=== PATIENT | female | born 1965 | race Hispanic/Latino ===

== ENCOUNTER 2021-08-17 16:32 | Emergency (ER) | payer SELFPAY ==
--- NOTE | ~2021-08-17 | CT_ITS ---
EXAMINATION: CTA brain carotid DATE: 08/17/2021 20:37 INDICATION: Dizziness. TECHNIQUE: Computed tomographic angiography (CTA) of the head was performed without and with 100 mL O mnipaque-350 intravenous contrast. CTA of the neck was performed with intravenous contrast. Automated exposure control and iterative reconstruction technique were employed. The dose-length product was 1 634.07 mGy-cm. Maximum intensity projection and volume rendered 3D-reconstructions were created by paulette palacios technologist on a separate workstation. COMPARISON: None. FINDINGS: HEAD CTA: There is no intracranial hemorrhage, acute infarction, or abnormal intracranial mass lesion . The ventricles are normal in size. There is mild mucosal thickening in the paranasal sinuses. The o rbits are normal. The mastoid air cells are normal. The vertebral arteries are codominant. There is n o significant stenosis of basilar artery or the posterior cerebral arteries. The left posterior commu nicating artery is normal. A right posterior communicating artery is not identified. There is no sign ificant stenosis of the intracranial internal carotid arteries or anterior or middle cerebral arterie s. Anterior communicating artery is normal. There is no aneurysm. NECK CTA: Pectus excavatum is noted. There are no pathologically enlarged lymph nodes. There is no si gnificant stenosis of the vertebral arteries. There is mild plaque in the proximal internal carotid a rteries. There is 0% stenosis of the proximal right internal carotid artery relative to normal distal artery lumen diameter (NASCET criteria). There is 0% stenosis of the proximal left internal carotid artery relative to normal distal artery lumen diameter. There is severe cervical spondylosis. IMPRESSION: 1. Normal brain. No aneurysm or significant intracranial internal stenosis. 2. 0% stenosis of the proximal internal carotid arteries relative to normal distal artery lumen diame ters (NASCET criteria). Reviewed, dictated and finalized at location E. EL INSPECTOR IMPRESSION: 1. Normal brain. No aneurysm or significant intracranial internal stenosis. 2. 0% stenosis of the proximal internal carotid arteries relative to normal dis lonnie artery lumen diameters (NASCET criteria).
[2021-08-17 16:35] VITALS: BP 139/83; PULSE 71; RESP 17; TEMP 36.5; O2SAT 100
--- NOTE | 2021-08-17 18:54 | ECG_ITS ---
Measurements Intervals [place] Rate: 31 P: 63 [place]: 156 QRS: -53 QRSD: 90 T: -28 QT: 376 QTc: 270 Interpretive Statements SINUS BRADYCARDIA ATRIAL PREMATURE COMPLEXES POSSIBLE LEFT ATRIAL ENLARGEMENT INCOMPLETE RIGHT BUNDLE BRANCH BLOCK BORDERLINE ST-T WAVE ABNORMALITY- ANTERIOR LEADS BASELINE ARTIFACT- I, II, III, AVR, AVL, AVF, V1-V6 BORDERLINE ECG Electronically Signed On 08-17-2021 20:38:49 [employer] by Louie Stovall D.O.
[2021-08-17] MEDS: MECLIZINE HCL 25 MG TABLET PO (19:08)
--- NOTE | 2021-08-17 19:39 | ED.GENADULT ---
HPI - General Adult General Chief complaint: Dizziness Stated complaint: dizzy, CP Time Seen by Provider: 08/17/21 18:10 Source: patient, family and RN notes reviewed History of Present Illness HPI narrative: Patient is a 56 y/o female complaining of moderate dizziness starting today. She describes her dizziness as room spinning sensation. She states that looking down made her dizziness worse. She has been having diarrhea and vomiting for 1 week. She has no abdominal pain or headache. Of note, patient is non[place] speaking and son provided translation. Related Data Allergies Allergy/AdvReac Type Severity Reaction Status Date / Time No Known Allergies Allergy Verified 08/17/21 16:37 Review of Systems Constitutional: Constitutional: Denies chills, Denies fever(s), Denies headache(s) and Denies weakness Eyes: Eyes: Denies blurry vision ENT: Denies headache(s) and Denies neck pain Cardiovascular: Cardiovascular: Denies chest pain and Denies dyspnea Respiratory: Respiratory: Denies cough and Denies dyspnea Gastrointestinal: Gastrointestinal: Denies abdominal pain, Reports diarrhea, Reports nausea and Reports vomiting Genitourinary: Genitourinary: Denies hematuria and Denies dysuria Musculoskeletal: Musculoskeletal: Denies back pain and Denies neck pain Neurologic: Reports dizziness, Denies headache(s) and Denies weakness Exam Const: General: no acute distress and well developed Orientation/consciousness: oriented to person, oriented to place, oriented to time and patient oriented x3 HENMT: Head: normocephalic Ears: external ears normal General nose exam: Normal external nose present Eyes: General: appearance normal, both eyes and all related structures Conjunctivae: conjunctivae normal Neck: Neck: normal visual inspection and full ROM Chest: Chest palpation & inspection: normal inspection of the chest and no tenderness Resp: Effort & Inspection: normal respiratory effort Auscultation: clear to auscultation bilaterally Cardio: Rate: regular rate Rhythm: regular rhythm GI: GI Palp: No abdominal tenderness and Yes Soft to palpation Skin: General skin exam: normal color and turgor normal Neuro: General: oriented to person, oriented to place, oriented to time and patient oriented x3 Cranial nerves: Yes CN's II-XII intact bilaterally Cognition (Neuro): normal cognition Speech: normal speech Motor exam (neuro): 5/5 motor strength present throughout Sensory Exam: normal sensation Coordination: [id number] test normal and [id number] test normal Extrem: General: normal to inspection, full ROM and no pedal edema Psych: Appearance: grossly normal Mental Status: mental status grossly normal Affect: normal affect Course Vital Signs Vital signs: Vital Signs Temperature 36.5 C 08/17/21 16:35 Pulse Rate 71 08/17/21 16:35 Respiratory Rate 17 08/17/21 16:35 Blood Pressure 139/83 08/17/21 16:35 Pulse Oximetry 100 08/17/21 16:35 Temperature 36.5 C 08/17/21 16:35 Pulse Rate 87 08/17/21 23:53 Respiratory Rate 16 08/17/21 23:53 Blood Pressure 124/64 08/17/21 23:53 Pulse Oximetry 99 08/17/21 23:53 Medical Decision Making Vital Signs Vital Signs: Vital Signs Temperature 36.5 C 08/17/21 16:35 Pulse Rate 71 08/17/21 16:35 Respiratory Rate 17 08/17/21 16:35 Blood Pressure 139/83 08/17/21 16:35 Pulse Oximetry 100 08/17/21 16:35 Temperature 36.5 C 08/17/21 16:35 Pulse Rate 87 08/17/21 23:53 Respiratory Rate 16 08/17/21 23:53 Blood Pressure 124/64 08/17/21 23:53 Pulse Oximetry 99 08/17/21 23:53 Lab Data Result diagrams: 08/17/21 19:28 08/17/21 19:28 Labs: Lab Results 08/16/21 08/17/21 08/17/21 Range/Units 22:26 19:28 19:28 WBC 5.9 (4.5-10.0) K/mm3 RBC 4.37 (4.2-5.4) M/mm3 Hgb 13.7 (12.0-15.0) g/dL Hct 40.6 (37.0-47.0) % MCV 92.9 (80-100) fl MCH 31.4 (26-34) pg
[2021-08-17 19:44] LABS: Basophils Percent Auto 0.3 % (0.2-1.2); Eosinophils Absolute Auto 0.1 K/mm3 (0-0.3); Eosinophils Percent Auto 1.5 % (0-4.4); Hematocrit 40.6 % (37.0-47.0); Hemoglobin 13.7 g/dL (12.0-15.0); Immature Granulocyte Absolute 0.01 K/mm3 (0.00-0.031); Immature Granulocyte Percent A 0.2 % (0-0.5); Lymphocytes Absolute Auto 1.77 K/mm3 (0.9-3.2); Lymphocytes Percent Auto 30.2 % (18.3-44.2); Mean Corpuscular HGB Conc 33.7 g/dl (32-36); Mean Corpuscular Hemoglobin 31.4 pg (26-34); Mean Corpuscular Volume 92.9 fl (80-100); Mean Platelet Volume 9.6 fl (7.4-10.4); Monocytes Absolute Auto 0.5 K/mm3 (0.1-0.6); Monocytes Percent Auto 7.8 % (2.6-8.5); Neutrophils Absolute Auto 3.5 K/mm3 (1.3-6.7); Platelet Count Result 291 k/mm3 (150-375); Red Blood Count 4.37 M/mm3 (4.2-5.4); Red Cell Distribution Width 12.5 % (11.5-14.5); White Blood Count 5.9 K/mm3 (4.5-10.0)
[2021-08-17] MEDS: ONDANSETRON INJ 4 MG/2 ML VIAL IV PUSH (19:50)
[2021-08-17] MEDS: SODIUM CHLORIDE 0.9% IV 1,000 ML 999 ML IV CONT (19:50)
[2021-08-17 20:05] LABS: Anion Gap 6 mmol/L (8-16); Blood Urea Nitrogen 15 mg/dL (7-17); Calcium 9.9 mg/dL (8.4-10.2); Carbon Dioxide 28 mmol/L (22-30); Chloride 105 mmol/L (98-107); Estimated CRCL calculation 61 ml/min; Estimated Glomerular Filt Rate > 60; Glucose 97 mg/dL (65-110); Potassium 4.1 mmol/L (3.4-5.0); Sodium 139 mmol/L (137-145)
[2021-08-17 20:53] VITALS: BP 111/59; PULSE 90; RESP 16; O2SAT 98
--- NOTE | 2021-08-17 21:44 | PC.NURSE ---
PT walked, no longer feeling dizzy. Pt doing po challenge now.
[2021-08-17 21:59] LABS: Troponin I < 0.012 ng/mL (0.000-0.034)
[2021-08-17 23:16] LABS: Troponin I < 0.012 ng/mL (0.000-0.034)
[2021-08-17 23:53] VITALS: BP 124/64; PULSE 87; RESP 16; O2SAT 99
== END 2021-08-17 23:54 | disposition home or self-care (01) ==
PROVIDERS: Emergency Provider Emergency Medicine
DX: R42 Dizziness and giddiness (principal); R11.2 Nausea with vomiting, unspecified; E86.0 Dehydration
CPT/HCPCS: 36415; 70496; 70498; 80048; 84484; 85025; 93005; 96374; 99284; A9270; J2405; J7030; Q9967